=== PATIENT | female | born 1945 | race Caucasian/White ===

== ENCOUNTER → 2016-07-02 | Outpatient (CLI) | payer MEDICARE ==
--- NOTE | 2016-07-02 15:39 | NM ---
EXAMINATION TYPE: NM bone scan whole body DATE OF EXAM: 07/02/2016 3:33 PM COMPARISON: Previous study dated 03/29/2010 HISTORY: Thoracic and low back pain Delayed whole-body scanning was performed following the injection of 26.9 mCi Tc 99m MDP. Images acq uired 3 hours post injection. FINDINGS: There continues to be abnormal uptake in the T11 vertebral body. There is asymmetric activity within the right renal pelvis. There is degenerative uptake at the base of both lungs as well as in the righ t first MTP joint and within the hind feet of both feet. IMPRESSION: 1. Persistent abnormal activity in the T11 vertebral body. 2. Degenerative uptake as described.
== END | disposition home or self-care (01) ==
LOC: RADNMMAIN 11:26
PROVIDERS: ATTEND Physical Medicine & Rehabilitation
DX: R93.7 Abnormal findings on diagnostic imaging of other parts of musculoskeletal system (principal); M54.5 Low back pain; M54.6 Pain in thoracic spine
CPT/HCPCS: 78306; A9503

== ENCOUNTER 2020-02-06 12:38 | Emergency (ER) | payer MEDICARE ==
[2020-02-06 12:45] VITALS: TEMP 98
[2020-02-06] MEDS ORDERED: LIDOCAINE 1% INJ 10MG/ML (20 ML MDV) SQ ONE (12:54)
--- NOTE | 2020-02-06 12:58 | ED ---
General Adult HPI - General Chief complaint: Fall Stated complaint: Fall, Leg laceration Time Seen by Provider: 02/06/20 12:48 Source: patient, RN notes reviewed, old records reviewed Mode of arrival: ambulatory Limitations: no limitations - History of Present Illness Initial comments: 75-year-old female presents with mechanical fall. There was laceration and skin tear to the left knee. She was seen at [facility] and was sent in for repair of skin defect. She has been ambulatory on the knee since the fall. She denies loss consciousness or significant head trauma. She states her tetanus is up-to-date. No other injuries reported. - Related Data Home Medications Medication Instructions Recorded Confirmed Isosorbide Mononitrate ER [Imdur] 30 mg PO DAILY 10/27/15 10/27/15 Lisinopril [Prinivil] 10 mg PO DAILY 10/27/15 10/27/15 Metoprolol Tartrate [Lopressor] 50 mg PO BID 10/27/15 10/27/15 Pioglitazone [Actos] 15 mg PO DAILY 10/27/15 10/27/15 Sertraline HCl [Zoloft] 50 mg PO DAILY 10/27/15 10/27/15 metFORMIN HCL [Glucophage Xr] 500 mg PO BID 10/27/15 10/27/15 Previous Rx's Medication Instructions Recorded Ciprofloxacin HCl [Cipro] 500 mg PO Q12HR #14 day 10/27/15 Allergies Allergy/AdvReac Type Severity Reaction Status Date / Time furosemide [From Lasix] Allergy Rash/Hives Verified 02/06/20 12:45 Penicillins Allergy Itching Verified 10/27/15 15:35 Review of Systems ROS Statement: Those systems with pertinent positive or pertinent negative responses have been documented in the HPI. ROS Other: All systems not noted in ROS Statement are negative. Past Medical History Past Medical History: Diabetes Mellitus, Myocardial Infarction ([place]) History of Any Multi-Drug Resistant Organisms: None Reported Past Surgical History: Heart Catheterization With Stent Additional Past Surgical History / Comment(s): cataract, angioplasty Past Psychological History: No Psychological Hx Reported Smoking Status: Former smoker Past Alcohol Use History: None Reported Past Drug Use History: None Reported General Exam Limitations: no limitations General appearance: alert, in no apparent distress Head exam: Present: atraumatic, normocephalic Eye exam: Present: normal appearance, PERRL ENT exam: Present: normal exam Neck exam: Present: normal inspection. Absent: tenderness, meningismus Respiratory exam: Present: normal lung sounds bilaterally. Absent: respiratory distress, wheezes Cardiovascular Exam: Present: regular rate, normal rhythm GI/Abdominal exam: Present: soft. Absent: distended, tenderness, guarding Extremities exam: Present: full ROM, other (Laceration and skin tear to the left anterior knee, no deformity, normal range of motion) Back exam: Present: full ROM Neurological exam: Present: alert, oriented X3, CN II-XII intact, normal gait. Absent: motor sensory deficit Psychiatric exam: Present: normal affect, normal mood Course Vital Signs 02/06/20 12:41 Temperature 98.0 F Pulse Rate 59 L Respiratory 18 Rate Blood Pressure 150/83 O2 Sat by Pulse 98 Oximetry Procedures - Laceration Laceration #1 Consent Obtained: verbal consent Indication: laceration Site: lower extremity Size (cm): 6 Description: flap, avulsion Depth: simple, single layer Anesthetic Used: lidocaine 1% Anesthesia Technique: local infiltration Amount (mls): 5 Pre-repair: wound explored, irrigated extensively, deep structures intact Type of Sutures: nylon Size of Sutures: 5-0 Number of Sutures: 7 Technique: simple, interrupted Patient Tolerated Procedure: well Medical Decision Making - Medical Decision Making 75-year-old female with mechanical fall, left knee injury, x-ray performed, negative for fracture dislocation. Laceration is repaired with nylon suture. Patient's tetanus is up-to-date. She will return for suture removal in 10-14 days. She will follow-up with her primary care physician, monitor for signs of infection. Disposition Clinical Impression: Fall, Knee contusion, Laceration Disposition: HOME SELF-CARE Condition: Good Instructions (If sedation given, give patient instructions): Contusion in Adults (ED), Laceration (ED), Care For Your Stitches (ED) Additional Instructions: Please return for suture removal in 10-14 days. Is patient prescribed a controlled substance at d/c from ED?: No Referrals: Radnall Hernández MD [Primary Care Provider] - 1-2 days
--- NOTE | 2020-02-06 13:28 | XR ---
EXAMINATION TYPE: XR knee complete LT DATE OF EXAM: 02/06/2020 COMPARISON: NONE HISTORY: 75-year-old female with pain after fall TECHNIQUE: 3 views FINDINGS: Degenerative spurring at the medial and patellofemoral compartments. Trace knee joint effusion. There is irregularity of the soft tissues overlying the tibial tuberosity with some underlying soft tissue air. No acute fracture, subluxation, dislocation otherwise seen. IMPRESSION: 1. Correlate for possible soft tissue injury/laceration overlying the tibial tuberosity and resultant localized few foci of soft tissue air. 2. Small knee joint effusion is nonspecific. 3. Degenerative spurring medial and patellofemoral compartments. 4. No acute osseous abnormality otherwise seen.
[2020-02-06 13:47] VITALS: BP 114/54; PULSE 58; RESP 16
== END 2020-02-06 13:45 | disposition home or self-care (01) ==
LOC: EC 12:38
DX: S81.012A Laceration without foreign body, left knee, initial encounter (principal); E11.9 Type 2 diabetes mellitus without complications; I25.2 Old myocardial infarction; Z79.84 Long term (current) use of oral hypoglycemic drugs; Z88.0 Allergy status to penicillin; Z88.8 Allergy status to other drugs, medicaments and biological substances; Z95.5 Presence of coronary angioplasty implant and graft; Z87.891 Personal history of nicotine dependence; Z98.49 Cataract extraction status, unspecified eye; W01.0XXA Fall on same level from slipping, tripping and stumbling without subsequent striking against object, initial encounter; Y92.89 Other specified places as the place of occurrence of the external cause
CPT/HCPCS: 73562; 99283; 12002; J2001